=== PATIENT | female | born 2000 | race African-American/Black ===

== ENCOUNTER 2024-04-21 11:39 | Outpatient (CLI) | payer BC, SELFPAY ==
--- NOTE | ~2024-04-21 | US_ITS ---
EXAMINATION: US thyroid DATE: 04/21/2024 11:53 INDICATION: Enlarged thyroid. TECHNIQUE: Multiple ultrasound images of the thyroid were obtained. COMPARISON: None. FINDINGS: The right thyroid lobe measures 4.8 x 1.4 x 1.4 cm. The left thyroid lobe measures 4.6 x 1.1 x 1.7 c m. There is normal echotexture and echogenicity throughout the thyroid gland. No discrete nodules id entified. Normal vascular flow is present. IMPRESSION: 1. Normal thyroid. Reviewed, dictated and finalized at location A. IMPRESSION: 1. Normal thyroid.
== END 2024-04-21 11:40 ==
LOC: MICIMG 11:41
PROVIDERS: PCP Physician Assistant Medical; Visit Provider Nurse Practitioner
DX: E07.1 Dyshormogenetic goiter (principal)
CPT/HCPCS: 76536